=== PATIENT | female | born 1960 | race Caucasian/White ===

== ENCOUNTER 2019-07-19 13:15 | Emergency (ER) | payer BC ==
[2019-07-19] MEDS ORDERED: KETOROLAC TROMETHAMINE INJ/PF 30 MG/1 ML SDV IV ONE ×2 (13:37→18:30)
[2019-07-19] MEDS ORDERED: ONDANSETRON HCL INJ/PF 4 MG/2 ML SDV IV ONE ×2 (13:37→18:34)
[2019-07-19] MEDS ORDERED: MORPHINE SULFATE 10 MG/ML INJ IV ONE ×4 (13:38→17:04)
[2019-07-19] MEDS ORDERED: NORMAL SALINE 1000 ML 1,000 ML IV ONE (13:38)
--- NOTE | 2019-07-19 13:41 | ER Document Report ---
ED Medical Screen (RME) - General Chief Complaint: Flank Pain Stated Complaint: FLANK PAIN Time Seen by Provider: 07/19/19 13:33 Mode of Arrival: Wheelchair Information source: Patient Notes: 59-year-old female patient presenting to emergency department chief complaint of left flank pain. Patient reports pain started abruptly yesterday morning, she states the pain comes in waves. Patient reports history of kidney stones, states this feels similar. Reports that the pain wraps around from the left flank area to left lower quadrant. Patient hyperventilating in triage. I have greeted and performed a rapid initial assessment of this patient. A comprehensive ED assessment and evaluation of the patient, analysis of test results and completion of the medical decision making process will be conducted by additional ED providers. I have specifically instructed the patient or family members with the patient to immediately return to any nursing staff should anything change in the patient's condition or with their chief complaint. - Related Data Allergies/Adverse Reactions: No Known Allergies Allergy (Verified 07/19/19 13:36) Past Medical History Past Surgical History: Reports: Hx Section - X1 - Immunizations Hx Diphtheria, Pertussis, Tetanus Vaccination: Yes Physical Exam - Vital signs Vitals: Temp Pulse Resp BP Pulse Ox 97.7 F 97 26 H 156/113 H 94 07/19/19 13:21 07/19/19 13:21 07/19/19 13:21 07/19/19 13:21 07/19/19 13:21 Course - Vital Signs Vital signs: Temp Pulse Resp BP Pulse Ox 97.7 F 97 26 H 156/113 H 94 07/19/19 13:21 07/19/19 13:21 07/19/19 13:21 07/19/19 13:21 07/19/19 13:21
[2019-07-19 14:46] LABS: ABSOLUTE BASOPHILS # (AUTO) 0.1 10^3/uL (0.0-0.2); ABSOLUTE EOSINOPHILS # (AUTO) 0.1 10^3/uL (0.0-0.6); ABSOLUTE MONOCYTES (AUTO) 0.6 10^3/uL (0.1-1.4); ABSOLUTE NEUT (AUTO) 11.8 10^3/uL (1.7-8.2); BASOPHILS % (AUTO) 0.4 % (0-2); EOSINOPHILS % (AUTO) 0.6 % (0-6); HEMATOCRIT 45.8 % (36.0-47.0); HEMOGLOBIN 15.8 g/dL (12.0-15.5); LYMPHOCYTES % (AUTO) 13.5 % (13-45); MEAN CORPUSCULAR HEMOGLOBIN 29.8 pg (27.0-33.4); MEAN CORPUSCULAR HGB CONC 34.5 g/dL (32.0-36.0); MEAN CORPUSCULAR VOLUME 86 fl (80-97); MONOCYTES % (AUTO) 4.1 % (3-13); PLATELET COUNT 278 10^3/uL (150-450); RED BLOOD COUNT 5.31 10^6/uL (3.72-5.28); RED CELL DISTRIBUTION WIDTH 13.7 % (11.5-14.0); SEGMENTED NEUTROPHILS % (AUTO) 81.4 % (42-78); TOTAL CELLS COUNTED % (AUTO) 100 %; WHITE BLOOD COUNT 14.5 10^3/uL (4.0-10.5)
[2019-07-19 14:48] LABS: ALBUMIN 4.4 g/dL (3.5-5.0); ALKALINE PHOSPHATASE 91 U/L (38-126); ANION GAP 12 (5-19); ASPARTATE AMINO TRANSFERASE 21 U/L (14-36); BILIRUBIN,DIRECT 0.3 mg/dL (0.0-0.4); BILIRUBIN,TOTAL 0.7 mg/dL (0.2-1.3); BLOOD UREA NITROGEN 11 mg/dL (7-20); CALCIUM 9.7 mg/dL (8.4-10.2); CARBON DIOXIDE 28 mmol/L (22-30); CHLORIDE 101 mmol/L (98-107); GLUCOSE 166 mg/dL (75-110); POTASSIUM 3.4 mmol/L (3.6-5.0); TOTAL PROTEIN 8.4 g/dL (6.3-8.2)
--- NOTE | 2019-07-19 14:50 | ER Document Report ---
ED GI/ - General Chief Complaint: Flank Pain Stated Complaint: FLANK PAIN Time Seen by Provider: 07/19/19 13:33 Mode of Arrival: Wheelchair Notes: CHIEF COMPLAINT: Left flank pain that began yesterday morning at 6 AM HPI: 59-year-old female with prior history of kidney stones many years ago presenting to the emergency department for evaluation of sudden onset of left flank pain with Nausea and vomiting. Patient is unsure of whether this feels like the kidney stones that she had previously. Patient states the pain seems to radiate from the left posterior flank around into the left lower quadrant region. Denies dysuria. Denies fever. Patient states the pain does not change with position or movement. ROS: See HPI - all other systems were reviewed and are otherwise negative Constitutional: no fever Eyes: no drainage, no blurred vision ENT: no runny nose, no sore throat Cardiovascular: no chest pain Resp: no SOB, no cough GI: + vomiting, no diarrhea, + abdominal pain : no dysuria Integumentary: no rash Allergy: no hives Musculoskeletal: no extremity pain or swelling Neurological: no incontinence of urine or bowel MEDICATIONS: I agree with the patient medications as charted by the RN. ALLERGIES: I agree with the allergies as charted by the RN. PAST MEDICAL HISTORY/PAST SURGICAL HISTORY: Reviewed and agree as charted by RN. SOCIAL HISTORY: Reviewed and agree as charted by RN. FAMILY HISTORY: No significant familial comorbid conditions directly related to patient complaint EXAM: Reviewed vital signs as charted by RN. CONSTITUTIONAL: Alert and oriented and responds appropriately to questions. Well-appearing; well-nourished. Moderate distress secondary to pain HEAD: Normocephalic; atraumatic EYES: PERRL; Conjunctivae clear, sclerae non-icteric ENT: normal nose; no rhinorrhea; moist mucous membranes; pharynx without lesions noted NECK: Supple without meningismus RESP: Normal chest excursion without splinting or tachypnea; breath sounds clear and equal bilaterally; no wheezes, no rhonchi, no rales ABD/GI: Normal bowel sounds; non-distended; soft, mild tenderness to the left flank on palpation, no rebound, no guarding; no palpable organomegaly or masses. BACK: The back appears normal and is non-tender to palpation, there is mild left CVA tenderness EXT: Normal ROM in all joints; non-tender to palpation; no cyanosis, no effusions, no edema SKIN: Normal color for age and race; warm; dry; good turgor; no acute lesions noted NEURO: Moves all extremities equally; Motor and sensory function intact PSYCH: The patient's mood and manner are appropriate. Grooming and personal hygiene are appropriate. MDM: 59-year-old female with prior kidney stone history presenting with sudden onset left flank pain yesterday morning with some nausea vomiting. Patient appears moderately uncomfortable at this time. States the initial pain medications ordered through the triage process of Toradol, morphine did make her feel better. Will re-dose morphine 2 mg, start Flomax, Percocet. TRAVEL OUTSIDE OF THE [place] IN LAST 30 DAYS: No - Related Data Allergies/Adverse Reactions: No Known Allergies Allergy (Verified 07/19/19 13:36) Home Medications: naprosyn, plaquenil, hctz, metformin Past Medical History - General Information source: Patient - Social History Smoking Status: Never Smoker Chew tobacco use (# tins/day): No Frequency of alcohol use: None Drug Abuse: None Family History: Other - No known history of nephrolithiasis Patient has suicidal ideation: No Patient has homicidal ideation: No Past Surgical History: Reports: Hx Section - X1 - Immunizations Hx Diphtheria, Pertussis, Tetanus Vaccination: Yes Physical Exam - Vital signs Vitals: Temp Pulse Resp BP Pulse Ox 97.7 F 97 26 H 156/113 H 94 07/19/19 13:21 07/19/19 13:21 07/19/19 13:21 07/19/19 13:21 07/19/19 13:21 Course - Re-evaluation Re-evalutation: 07/19/19 14:54 Patient is back from CT and would like more pain medication. I do believe I visualize a small kidney stone on the left distally. Will give another dose of morphine, start patient on Flomax and Percocet 07/19/19 15:[address] Tinsley. patient with a 5 mm stone in the distal third of the left ureter. Mild hydronephrosis hydroureter is noted. Patient appears to have moderate leukocytosis of the urine, negative nitrites. She is not febrile. Patient also has a mild leukocytosis but renal function is preserved. Will give Rocephin, reassess after pain medication. 07/19/19 16:17 Patient is more comfortable at this time. We will plan to hold patient for observation to ensure that her pain level is manageable 07/19/19 17:04 Patient states she is having more severe pain similar to when she first presented in the left flank region. Patient will be given another 4 mg of morphine. She has received a total of 12 mg of morphine, 1 Percocet, Flomax, Toradol here. I discussed this at length with them. follows with Dr. Clark from [facility] urology and he would prefer if patient needs to be transferred for further evaluation that we call them first. We do not have urology environmental tech so I will attempt to speak with the urologist on-call at [facility]. 07/19/19 17:58 I called the [facility] transfer line and spoke with Nimo myself. We have been having difficulty obtaining a urology call back over the last 5 hours for various patients. She is aware of Ms. Georges and our request to speak with urology regarding possible transfer. Patient has WBCs in the urine. She has an elevated WBC count and uncontrolled pain with an obstructing stone. We re- requested that she have urology call us. I have also placed a call to [facility] to speak with their urology team given the difficulty in reaching the urology team at [facility], discussed with Dr. Tinsley, ER attending 07/19/19 18:00 07/19/19 18:[address] Norman, Urology at [facility]. We discussed the patient's lab work, imaging studies, case. He recommends giving the patient Toradol 15 mg that she only received 15 mg earlier. He recommends giving the patient acetaminophen 1000 mg IV. He states that we can also give her Dilaudid if needed. He states that he can see the patient first thing tomorrow morning, he does not believe that patient needs transfer at this time if we give additional pain medications here. 07/19/19 19:34 Patient states nausea is much better. She is finishing the acetaminophen at this time but states she feels much better. We will give Valium for the spasms she is complaining of in the flank. Patient is willing to be discharged home at this time, states that she believes that she can tolerate oral medications at home until following up first thing in the morning. We discussed strict return precautions. Will place patient on Zofran, Percocet, Flomax. - Vital Signs Vital signs: Temp Pulse Resp BP Pulse Ox 97.6 F 86 26 H 186/89 H 92 07/19/19 16:58 07/19/19 16:58 07/19/19 13:21 07/19/19 16:58 07/19/19 16:58 - Laboratory Result Diagrams: 07/19/19 14:00 07/19/19 14:00 Laboratory results interpreted by me: 07/19/19 07/19/19 07/19/19 14:00 14:00 14:26 WBC 14.5 H RBC 5.31 H Hgb 15.8 H Absolute Neuts (auto) 11.8 H Seg Neutrophils % 81.4 H Potassium 3.4 L Est GFR (MDRD) Non-Af 53 L Glucose 166 H Total Protein 8.4 H Urine Protein 100 H Urine Blood MODERATE H Ur Leukocyte Esterase MODERATE H Discharge - Discharge Clinical Impression: Kidney stone on left side Condition: Stable Disposition: HOME, SELF-CARE Instructions: Kidney Stone ([facility]) Additional Instructions: Follow-up with Dr. Norman tomorrow in his [place] office first thing in the morning, [address], [place] [address]. Medications as prescribed take the Percocet every 4 hours to help keep your pain controlled. Take Zofran for nausea or vomiting. Take Flomax for spasm. Return for intractable pain as discussed Prescriptions: Tamsulosin HCl [Flomax 0.4 mg Cap.sr] 0.4 mg PO DAILY #7 cap.sr.24h Oxycodone HCl/Acetaminophen [Percocet 5-325 mg Tablet] 1 - 2 tab PO Q4H PRN #25 tablet PRN Reason: Ondansetron [Zofran Odt 4 mg Tablet] 1 - 2 tab PO Q4H PRN #15 tab.rapdis PRN Reason: For Nausea/Vomiting Referrals: TERRI NORMAN MD [NO LOCAL MD] - Follow up as needed
[2019-07-19] MEDS ORDERED: OXYCODONE-ACETAMINOPHEN 5-325 MG TABLET PO ONE (14:55)
[2019-07-19] MEDS ORDERED: TAMSULOSIN HCL 0.4 MG CAP.SR.24H PO ONE (14:55)
--- NOTE | 2019-07-19 15:05 | RADIOLOGY REPORT (SQ) ---
EXAM DESCRIPTION: CT ABD/PELVIS NO ORAL OR IV COMPLETED DATE/TIME: 07/19/2019 2:48 pm REASON FOR STUDY: L flank pain COMPARISON: None. TECHNIQUE: CT scan of the abdomen and pelvis performed without intravenous or oral contrast. Images reviewed with lung, soft tissue, and bone windows. Reconstructed coronal and sagittal MPR images revi ewed. All images stored on PACS. All CT scanners at this facility use dose modulation, iterative reconstruction, and/or weight based d osing when appropriate to reduce radiation dose to as low as reasonably achievable (ALARA). [facility]: Dose Right [facility]: CareDose [facility]: Dose Right [facility]: Teradose 4D [facility]: [employer] RADIATION DOSE: 1068 mGy cm LIMITATIONS: None. FINDINGS: LOWER CHEST: Bibasilar scarring or atelectasis. NON-CONTRASTED LIVER, SPLEEN, ADRENALS: Evaluation limited by lack of IV contrast. Hepatomegaly and hepatic steatosis. No identified significant masses. PANCREAS: No masses. No peripancreatic inflammatory changes. GALLBLADDER: No identified stones by CT criteria. No inflammatory changes to suggest cholecystitis. RIGHT KIDNEY AND URETER: No solid masses. No significant calcification. No hydronephrosis or hydroure ter. LEFT KIDNEY AND URETER: No solid masses. There is a 5 mm obstructive calculus of the distal third of the left ureter with moderate associated left hydronephrosis and hydroureter. AORTA AND RETROPERITONEUM: No aneurysm. No retroperitoneal masses or adenopathy. BOWEL AND PERITONEAL CAVITY: No obvious masses or inflammatory changes. No free fluid. Sigmoid diver ticulosis. APPENDIX: Normal. PELVIS, BLADDER, AND ABDOMINAL WALL:No abnormal masses. No free fluid. Bladder normal. BONES: No significant findings. OTHER: No other significant finding. IMPRESSION: 1. There is a 5 mm obstructive calculus of the distal third of the left ureter with mode rate associated left hydronephrosis and hydroureter. No other evidence of urinary tract calculus. 2. Hepatomegaly and hepatic steatosis. TECHNICAL DOCUMENTATION: JOB ID: [id number] Quality ID # [id number]: Final reports with documentation of one or more dose reduction techniques (e.g., Au tomated exposure control, adjustment of the mA and/or kV according to patient size, use of iterative reconstruction technique) 2010 [employer]- All Rights Reserved Reading location - IP/workstation name: [email or web address]
[2019-07-19 15:06] LABS: APPEARANCE,URINE SLIGHTLY-CLOUDY; BILIRUBIN,URINE NEGATIVE (NEGATIVE); COLOR,URINE YELLOW; GLUCOSE, URINE NEGATIVE (NEGATIVE); KETONES,URINE NEGATIVE (NEGATIVE); LEUKOCYTE ESTERASE,URINE MODERATE (NEGATIVE); NITRITE,URINE NEGATIVE (NEGATIVE); PROTEIN,URINE 100 mg/dL (NEGATIVE); URINE SPECIFIC GRAVITY 1.019; UROBILINOGEN,URINE NEGATIVE mg/dL (<2.0)
[2019-07-19] MEDS ORDERED: CEFTRIAXONE 1 GM/D5W RTU 1 GM/50 ML RTUPB IV ONE (16:00)
[2019-07-19] MEDS ORDERED: DIAZEPAM INJ 10 MG/2 ML DISP.SYRIN IV ONE (19:14)
[2019-07-19] MEDS ORDERED: ACETAMINOPHEN 1,000 MG/100 ML RTUPB IV ONE (19:30)
--- NOTE | 2019-07-19 22:40 | ER Document Report ---
Doctor's Note Notes: 07/19/19 22:37 When patient was ready to be discharged home she was sleeping when the nurse went in to check on her and her O2 sat was 83. We did place her on O2 to 1 L for about an hour now her sats are staying at 97. She has been off of the oxygen for more than an hour and her sats are staying above 96. We will discha rge patient home with her medications and orders as was prescribed by the midlevel cared for the patient. She states she is feeling fine she is not feeling short of breath. She states she will follow-up with her doctors as ordered.
[2019-07-19 22:56] VITALS: BP 154/82
== END 2019-07-19 22:56 | disposition home or self-care (01) ==
LOC: ER 13:15
DX: N13.2 Hydronephrosis with renal and ureteral calculous obstruction (principal); R10.9 Unspecified abdominal pain; R10.32 Left lower quadrant pain; R11.2 Nausea with vomiting, unspecified; D72.829 Elevated white blood cell count, unspecified; Z79.899 Other long term (current) drug therapy; Z79.84 Long term (current) use of oral hypoglycemic drugs; Z79.1 Long term (current) use of non-steroidal anti-inflammatories (NSAID)
CPT/HCPCS: 96376; 99284; 96361; 96375; 96365; 36415; 83690; 85025; 80053; 81001; 74176; J3360; J1885; J2270; J2405; J7030; J0696; J0131